=== PATIENT | male | born 1995 ===

== ENCOUNTER 2022-02-03 18:12 | Emergency (ER) | payer SELFPAY ==
[2022-02-03 20:04] VITALS: BP 125/77
== END 2022-02-04 02:50 | disposition left against medical advice (07) ==
LOC: ED 18:12
DX: Z20.2 Contact with and (suspected) exposure to infections with a predominantly sexual mode of transmission (principal); Z53.21 Procedure and treatment not carried out due to patient leaving prior to being seen by health care provider